=== PATIENT | female | born 1945 | race Hispanic/Latino ===

== ENCOUNTER 2021-03-20 17:02 | Emergency (ER) | payer MEDICARE ==
[2021-03-20] MEDS ORDERED: cloNIDine 0.2 MG TAB PO ONE (20:13)
[2021-03-20 22:00] VITALS: BP 173/109
--- NOTE | 2021-03-20 22:03 | Emergency Department Report ---
ED General Adult HPI - General Chief complaint: High BP Stated complaint: PHYSICIAN REFERRAL Time Seen by Provider: 03/20/21 20:07 Source: patient Mode of arrival: Ambulatory Limitations: No Limitations - History of Present Illness Initial comments: Patient is a 75-year-old female with past medical history of hypertension who had some elevations of her blood pressure over the last several days. She states she is not compliant with a low-salt diet. She is compliant with her meds and takes Catapres 0.1 mg twice daily and metoprolol 100 mg extended release daily. Blood pressure was over 200 today. Patient states she has no symptoms of endorgan damage and denies any headache focal neurological deficits chest pain shortness of breath. - Related Data Previous Rx's Medication Instructions Recorded Last Taken Type cloNIDine [Catapres] 0.1 mg PO TID #90 tablet 03/20/21 Unknown Rx Allergies Allergy/AdvReac Type Severity Reaction Status Date / Time acetaminophen [From Percocet] Allergy Shortness Verified 03/20/21 17:47 of Breath morphine Allergy Shortness Verified 03/20/21 17:47 of Breath oxycodone [From Percocet] Allergy Shortness Verified 03/20/21 17:47 of Breath ED Review of Systems ROS: Stated complaint: PHYSICIAN REFERRAL Other details as noted in HPI Comment: All other systems reviewed and negative ED Past Medical Hx - Past Medical History Previous Medical History?: Yes Hx Hypertension: Yes Hx COPD: Yes - Surgical History Past Surgical History?: Yes Additional Surgical History: tonsils, hyst, knee surgery - Medications Home Medications: Home Medications Medication Instructions Recorded Confirmed Last Taken Type cloNIDine [Catapres] 0.1 mg PO TID #90 tablet 03/20/21 Unknown Rx ED Physical Exam - General Limitations: No Limitations General appearance: alert, in no apparent distress - Head Head exam: Present: atraumatic, normocephalic - Eye Eye exam: Present: normal appearance, PERRL, EOMI - ENT ENT exam: Present: mucous membranes moist - Neck Neck exam: Present: normal inspection - Respiratory Respiratory exam: Present: normal lung sounds bilaterally. Absent: respiratory distress, wheezes, rales, rhonchi - Cardiovascular Cardiovascular Exam: Present: regular rate, normal rhythm, normal heart sounds. Absent: systolic murmur, diastolic murmur, rubs, gallop - GI/Abdominal GI/Abdominal exam: Present: soft, normal bowel sounds. Absent: distended, tenderness, guarding, rebound - Extremities Exam Extremities exam: Present: normal inspection - Back Exam Back exam: Present: normal inspection - Neurological Exam Neurological exam: Present: alert, oriented X3 - Psychiatric Psychiatric exam: Present: normal affect, normal mood - Skin Skin exam: Present: warm, dry, intact, normal color. Absent: rash ED Course Vital Signs 03/20/21 03/20/21 17:47 20:31 Temperature 98.1 F Pulse Rate 77 79 Respiratory 20 Rate Blood Pressure 209/96 214/115 O2 Sat by Pulse 96 Oximetry ED Medical Decision Making - Medical Decision Making Patient is likely will need to increase her Catapres frequency. Patient given 0.2 of Catapres blood pressure is trending downward we will discharge patient home. Critical care attestation.: If time is entered above; I have spent that time in minutes in the direct care of this critically ill patient, excluding procedure time. ED Disposition Clinical Impression: Hypertensive urgency Disposition: DC-01 TO HOME OR SELFCARE Is pt being admited?: No Does the pt Need Aspirin: No Condition: Stable Instructions: Managing Your Hypertension Prescriptions: cloNIDine [Catapres] 0.1 mg PO TID #90 tablet Referrals: KELSIE CLARKE MD [Primary Care Provider] - 3-5 Days Time of Disposition: 22:03
== END 2021-03-20 22:20 | disposition home or self-care (01) ==
LOC: ED 17:02
DX: I16.0 Hypertensive urgency (principal); J44.9 Chronic obstructive pulmonary disease, unspecified; Z98.890 Other specified postprocedural states; Z88.5 Allergy status to narcotic agent
CPT/HCPCS: 99282